=== PATIENT | female | born 1960 | race African-American/Black ===

== ENCOUNTER 2021-06-01 15:02 | Emergency (ER) | payer MEDICAID ==
[~2021-06-01] VITALS: Ht 167.6 cm; Wt 103.0 kg
[2021-06-01 15:09] VITALS: BP 123/89
[2021-06-01] MEDS ORDERED: METF-1253 PO ×2 (15:41→15:47)
[2021-06-01] MEDS ORDERED: INSU10SU2 SC ×2 (15:41→15:47)
[2021-06-01] MEDS ORDERED: ASPI-1822 PO ×2 (15:41→15:47)
[2021-06-01] MEDS ORDERED: LOSA50TA66 PO ×2 (15:41→15:47)
[2021-06-01] MEDS ORDERED: [UNRECOGNIZED DRUG - CODE] MC ×2 (15:41→15:47)
[2021-06-01] MEDS ORDERED: INSU-656 SUBQ ×2 (15:41→15:47)
[2021-06-01 16:00] VITALS: BP 123/89
== END 2021-06-01 16:00 | disposition home or self-care (01) ==
LOC: MED 15:02
DX: E11.9 Type 2 diabetes mellitus without complications (principal); Z76.0 Encounter for issue of repeat prescription; Z79.4 Long term (current) use of insulin; Z79.82 Long term (current) use of aspirin; Z79.899 Other long term (current) drug therapy
CPT/HCPCS: 99281